=== PATIENT | male | born 1995 | race Caucasian/White ===

== ENCOUNTER → 2017-04-23 | Outpatient (CLI) | payer BC ==
[~2017-04-23] MED LIST: ACCUTANE40 MG PO; DOXYCYCLINE HY100 M4 PO; ULTRAM50 MG PO
[2017-04-23 12:15] LABS: HEMOGLOBIN 16.4 g/dL (14.1-18.0); LYMPH # 1.9 K/mm3 (0.7-4.5); LYMPH % 39.7 % (10-50)
[2017-04-23 14:11] LABS: BUN 8 mg/dL (7-18)
[2017-04-23 14:12] LABS: GFR (ESTIMATED) 109 ML/MIN (>60)
== END ==
LOC: LAB 11:55
PROVIDERS: Nurse Practitioner Psychiatric/Mental Health
DX: F34.89 Other specified persistent mood disorders (principal); Z79.899 Other long term (current) drug therapy